=== PATIENT | male | born 1950 | race African-American/Black ===

== ENCOUNTER 2018-06-26 08:55 | Emergency (ER) | payer OTHER, MEDICAID ==
[~2018-06-26] VITALS: Ht 175.3 cm; Wt 90.0 kg
[~2018-06-26 08:55] MED LIST: GLIPIZIDE; INDOMETHACIN; LISINOPRIL
[2018-06-26] MEDS ORDERED: ONDANSETRON HCL 4MG/2ML INJ IV STA (09:09)
[2018-06-26] MEDS ORDERED: MECLIZINE 25MG TABLET PO ONE (09:15)
[2018-06-26 09:48] LABS: BASOPHILS % 0.6 % (0.0-2.0); EOSINOPHILS % 6.7 % (0.0-5.0); HEMATOCRIT. 38.6 % (42.0-52.0); HEMOGLOBIN. 12.6 g/dL (14.0-18.0); LYMPHOCYTES % 19.2 % (20.0-50.0); MEAN CORPUSCULAR HEMOGLOBIN 28.6 pg (28.0-32.0); MEAN CORPUSCULAR VOLUME 87.4 fL (80.0-94.0); MEAN PLATELET VOLUME 10.7 fl (7.4-10.4); MONOCYTES % 6.5 % (2.0-8.0); PLATELET 121 x1000/uL (130-400); RED BLOOD CELL COUNT 4.42 mill/uL (4.7-6.1); RED CELL DISTRIBUTION WIDTH 14.4 % (11.6-14.6)
[2018-06-26 09:55] LABS: CHLORIDE 108 mEq/L (98-107)
[2018-06-26 09:58] LABS: INR 1.1; PARTIAL THROMBOPLASTIN TIME 24.7 sec (23.4-31.0); PROTHROMBIN TIME 11.2 sec (9.1-11.1)
[2018-06-26 09:59] LABS: ETHANOL BLOOD < 10 mg/dL
[2018-06-26 11:44] VITALS: BP 133/74
== END 2018-06-26 12:08 | disposition short-term general hospital (02) ==
LOC: ER 08:55 → CANBEDREQ 13:51
DX: R55 Syncope and collapse (principal); R42 Dizziness and giddiness; R11.2 Nausea with vomiting, unspecified; E11.9 Type 2 diabetes mellitus without complications; E86.0 Dehydration; I10 Essential (primary) hypertension; J44.9 Chronic obstructive pulmonary disease, unspecified
CPT/HCPCS: 36415; 70450; 71045; 80053; 83605; 83690; 83880; 84145; 84484; 85025; 85610; 85730; 87040; 93005; 96374; 99285; G0482; J2405; J8597